=== PATIENT | female | born 1985 | race Two or more races ===

== ENCOUNTER 2016-08-27 01:44 | Emergency (ER) | payer OTHER ==
[~2016-08-27] VITALS: Ht 160 cm; Wt 72.0 kg
[2016-08-27] MEDS ORDERED: SODIUM CHLORIDE 0.9% 1,000 ML IV ONE (02:34)
[2016-08-27 03:04] LABS: BASOPHILS % 0.9 % (0.0-2.0); EOSINOPHILS % 1.7 % (0.0-5.0); HEMATOCRIT. 39.3 % (36.0-48.0); HEMOGLOBIN. 13.2 g/dL (12.0-16.0); LYMPHOCYTES % 13.9 % (20.0-50.0); MEAN CORPUSCULAR HEMOGLOBIN 27.7 pg (28.0-32.0); MEAN CORPUSCULAR VOLUME 82.5 fL (81.0-99.0); MEAN PLATELET VOLUME 6.6 fl (7.4-10.4); MONOCYTES % 6.2 % (2.0-8.0); NEUTROPHILS % 77.3 % (40.0-76.0); PLATELET 341 x1000/uL (130-400); RED BLOOD CELL COUNT 4.76 mill/uL (4.2-5.4); RED CELL DISTRIBUTION WIDTH 15.3 % (11.6-14.6)
[2016-08-27 03:15] LABS: D-DIMER 1.38 mg/L FEU (<0.50); INR 1.1; PROTHROMBIN TIME 11.3 sec
[2016-08-27 03:20] LABS: CARBON DIOXIDE 25 mEq/L (21-32); CHLORIDE 109 mEq/L (98-107); TROPONIN I < 0.02 ng/mL (0.00-0.04)
[2016-08-27 03:25] LABS: HCG SCREEN INDETERMINATE
[2016-08-27] MEDS ORDERED: ENOXAPARIN 80MG/0.8ML SYR SUBCUT ONE (03:30)
[2016-08-27 05:59] VITALS: BP 148/84
[2016-08-27] MEDS ORDERED: SODIUM CHLORIDE 0.9% 10ML VIAL ONE (12:42)
[2016-08-27] MEDS ORDERED: IOHEXOL-350 100 ML BOTTLE ONE (12:42)
== END 2016-08-27 06:24 | disposition home or self-care (01) ==
LOC: ER 01:44
DX: R06.02 Shortness of breath (principal); R05 Cough
CPT/HCPCS: 36415; 71010; 71275; 80053; 83880; 84484; 84702; 84703; 85025; 85379; 85610; 93005; 96360; 99285; A4216; J1650; Q9967; J7030